=== PATIENT | female | born 1950 | race Caucasian/White ===

== ENCOUNTER 2021-12-08 13:34 | Emergency (ER) | payer MEDICARE, OTHER, SELFPAY ==
--- NOTE | ~2021-12-08 | CT_ITS ---
EXAMINATION: CT brain wo con DATE: 12/08/2021 15:04 INDICATION: head injury TECHNIQUE: Computed tomography (CT) of the head was performed without intravenous contrast. The mA wa s adjusted according to patient size. Iterative reconstruction technique was employed. The dose-lengt h product was 756.67 mGy-cm. COMPARISON: None FINDINGS: No acute intracranial hemorrhage or extra-axial fluid collection. No hydrocephalus, mass, or herniation. No acute ischemic infarct. Unremarkable dural venous sinus attenuation. No acute osseous abnormality. Tiny right maxillary retention cyst/polyp, otherwise the aerated spaces are clear. Atherosclerotic intracranial calcifications. Bilateral lens replacements. IMPRESSION: No acute intracranial process. Reviewed, dictated and finalized at location K.
--- NOTE | ~2021-12-08 | CT_ITS ---
EXAMINATION: CT lumbar spine wo con DATE: 12/08/2021 15:05 INDICATION: Low back pain. TECHNIQUE: Computed tomography (CT) of the lumbar spine was performed without intravenous contrast. A utomated exposure control and iterative reconstruction technique were employed. The dose-length produ ct was 1156.51 mGy-cm. COMPARISON: None FINDINGS: There is 22 degrees levoscoliosis of lumbar spine. There is 3 mm retrolisthesis of L1 on L2 . There is mild chronic anterior wedging of T12 vertebral body. There is severely decreased disc heig ht at L1-L2 and mildly decreased disc height from L2-L3 through L4-L5. The following disc levels are specifically discussed: L1-L2: The disc does not extend beyond the endplate margin. There is severe right and mild left facet joint osteoarthritis. There is moderate right and mild left neural foraminal stenosis. There is mild central canal stenosis. L2-L3: The disc is bulging. There is severe bilateral facet joint osteoarthritis. There is mild bilat eral neural foraminal stenosis. There is mild central canal stenosis. L3-L4: The disc is bulging. There is severe bilateral facet joint osteoarthritis. There is mild bilat eral neural foraminal stenosis. There is mild central canal stenosis. L4-L5: The disc is bulging. There is severe bilateral facet joint osteoarthritis. There is mild right and moderate left neural foraminal stenosis. There is mild central canal stenosis. L5-S1: The disc does not extend beyond the endplate margin. There is severe bilateral facet joint ost eoarthritis. There is mild bilateral neural foraminal stenosis. There is no central canal stenosis. IMPRESSION: 1. Severe lumbar spondylosis. 2. Lumbar levoscoliosis. Reviewed, dictated and finalized at location B.
--- NOTE | ~2021-12-08 | CT_ITS ---
EXAMINATION: CT cervical spine wo con DATE: 12/08/2021 15:05 INDICATION: trauma TECHNIQUE: Computed tomography (CT) of the cervical spine was performed without intravenous contrast. Automated exposure control and iterative reconstruction technique were employed. The dose-length pro duct was 587.01 mGy-cm. COMPARISON: None FINDINGS: Counting reference: Craniocervical junction. There are seven cervical type vertebral bodies. Anatomic Variants: None. Vertebral Body Alignment: Intact. Craniocervical junction: Mild degenerative change. Alignment intact. Osseous structures/fracture: No evidence of a lytic or blastic process in the visualized spine. N o evidence of acute fracture. Cervical soft tissues: The paraspinal soft tissues planes are maintained. 14 mm left upper lobe pu lmonary nodule with spiculated margins. 7 mm left lower lobe nodule, with irregular/spiculated margin s and possible subsolid component. Degenerative changes: Degenerative changes, without severe neural foraminal or central canal narrowin g. Uncomplicated appearing C6-C7 ACDF. IMPRESSION: No acute fracture or traumatic malalignment in the cervical spine. Pulmonary nodules- recommend nonem ergent but timely CT of the chest for complete characterization and guidance of further management. Reviewed, dictated and finalized at location K. IMPRESSION: No acute fracture or traumatic malalignment in the cervical spine. Pulmonary no dules- recommend nonemergent but timely CT of the chest for complete characteri zation and guidance of further management.
[2021-12-08 13:59] VITALS: BP 122/65; PULSE 60; RESP 16; TEMP 35.8; O2SAT 100
[2021-12-08 14:09] LABS: Glucose Point of Care 98 mg/dl (65-105)
--- NOTE | 2021-12-08 14:28 | ED.GENADULT ---
HPI - General Adult General Chief complaint: Recheck/Abnormal Lab/Rx Stated complaint: low blood sugar Time Seen by Provider: 12/08/21 14:04 Source: patient, family and RN notes reviewed Mode of arrival: EMS Limitations: no limitations History of Present Illness HPI narrative: 71-year-old female presented to the emergency department by ambulance after having an episode of hypoglycemia and unresponsiveness. Patient had a fall in her bathroom, EMS arrived on the scene they found that her blood sugar was approximately 10. Patient was treated with IV glucose and patient's mentation and blood sugar did improve. Upon arrival to the emergency department patient was alert oriented and back at her baseline. Patient has been struggling with lower back pain and has had decreased appetite. Patient is also been taking narcotic pain medications which further causes nausea and decreased appetite. Patient states that she has been cutting back on her insulin but that she did not have very much to eat and did still take insulin. Patient had a fall in her bathroom and patient is unsure if she struck her head. Patient is reporting lower back pain which she states is typical of her chronic lower back pain. Patient does report a history of chronic kidney disease, leukocytosis, chronic back pain Related Data Home Medications Medication Instructions Recorded Confirmed allopurinol 100 mg PO DAILY 12/08/21 baclofen 10 mg PO TID 12/08/21 calcitriol 0.25 mcg PO DAILY 12/08/21 ergocalciferol (vitamin D2) 50,000 WEEKLY 12/08/21 [Vitamin D2] fluoxetine 40 mg PO DAILY 12/08/21 hydrochlorothiazide 25 mg PO DAILY 12/08/21 lisinopril 20 mg PO BID 12/08/21 metoprolol succinate 100 mg PO DAILY 12/08/21 omeprazole 40 mg PO DAILY 12/08/21 simvastatin 40 mg PO DAILY 12/08/21 terbinafine HCl [Lamisil] 250 mg PO DAILY 12/08/21 Allergies Allergy/AdvReac Type Severity Reaction Status Date / Time No Known Allergies Allergy Verified 12/08/21 14:04 Review of Systems Review of Systems: CONSTITUTIONAL: Patient reports he does feel tired but this improved while she was in the ED EYES: Denies visual changes, redness, or discharge. ENT: Denies rhinorrhea, congestion, sore throat, or otalgia. CARDIOVASCULAR: Denies chest pain, palpitations, or edema. RESPIRATORY: Denies cough or dyspnea. GASTROINTESTINAL: Denies abdominal pain, nausea, vomiting, or diarrhea. GENITOURINARY: Denies any urinary complaints SKIN: Denies rash or itching. MUSCULOSKELETAL: See HPI NEUROLOGIC: Denies headache, numbness, or weakness. PSYCHIATRIC: Denies anxiety or depression. All systems reviewed & are unremarkable except as noted in HPI and below Exam Narrative: APPEARANCE: Well appearing, no pain, no distress, well-nourished. HEAD: normocephalic, atraumatic. EYES: PERRLA/EOMI, conjunctivae clear. NOSE: Normal no drainage THROAT: Pharynx clear, no exudate. NECK: Patient did arrive in c-collar. Patient did have lower C-spine tenderness to palpation. C-spine precautions were maintained. RESPIRATORY: Airway patent, respirations nonlabored. Clear to auscultation bilaterally, no rales, rhonchi, wheezing. CARDIOVASCULAR: Regular rate and rhythm without murmurs rubs or gallops. ABDOMINAL: Soft, nontender, nondistended, normal bowel sounds MUSCULOSKELETAL: Moves all extremities. Lumbar tenderness to palpation. NEURO: Alert. Cranial nerves II through XII intact. Good gait. Good coordination SKIN: Warm, dry. Normal Color Course Course Emergency Course: Patient had negative imaging of head neck and lumbar spine. Patient continues to deny any new pain from the fall. Patient's blood sugars did remain stable and patient was tolerating p.o. Patient was hyponatremic but denied any symptomatic complaint. Patient states that her only complaint is that of her chronic lower back pain. Patient did have a leukocytosis. Patient states that she has had elevated white blood cell counts. Have been foll
[2021-12-08 14:33] LABS: Basophils Absolute Auto 0.1 K/mm3 (0.0-0.1); Basophils Percent Auto 0.5 % (0.2-1.2); Eosinophils Absolute Auto 0.1 K/mm3 (0-0.3); Eosinophils Percent Auto 0.4 % (0-4.4); Hematocrit 38.3 % (37.0-47.0); Immature Granulocyte Percent A 0.8 % (0-0.5); Lymphocytes Absolute Auto 0.87 K/mm3 (0.9-3.2); Lymphocytes Percent Auto 3.5 % (18.3-44.2); Mean Corpuscular HGB Conc 31.3 g/dl (32-36); Mean Corpuscular Volume 82.9 fl (80-100); Monocytes Absolute Auto 1.2 K/mm3 (0.1-0.6); Monocytes Percent Auto 4.9 % (2.6-8.5); Neutrophils Absolute Auto 22.3 K/mm3 (1.3-6.7); Neutrophils Percent Auto 89.9 % (45.5-73.1); Platelet Count Result 390 k/mm3 (150-375); Red Blood Count 4.62 M/mm3 (4.2-5.4); Red Cell Distribution Width 14.8 % (11.5-14.5); White Blood Count 24.8 K/mm3 (4.5-10.0)
[2021-12-08 14:43] LABS: Lactic Acid Reflex 1.3 mmol/L (0.7-2.0)
[2021-12-08 14:46] LABS: Alanine Aminotransferase 20 U/L (4-35); Albumin Level 3.9 g/dL (3.5-5.1); Alkaline Phosphatase 125 U/L (38-126); Anion Gap 6 mmol/L (8-16); Aspartate Amino Transferase 27 U/L (14-36); Bilirubin,Total 0.5 mg/dL (0.2-1.3); Blood Urea Nitrogen 20 mg/dL (7-17); Calcium 9.1 mg/dL (8.4-10.2); Carbon Dioxide 29 mmol/L (22-30); Chloride 91 mmol/L (98-107); Estimated CRCL calculation 49 ml/min; Estimated Glomerular Filt Rate 49; Glucose 57 mg/dL (65-110); Potassium 3.8 mmol/L (3.4-5.0); Sodium 126 mmol/L (137-145)
--- NOTE | 2021-12-08 15:04 | PC.NURSE ---
Pt states she uses Levimir pen and Humalog insulin but it unaware of doses.
[2021-12-08 15:18] LABS: Glucose Point of Care 71 mg/dl (65-105)
[2021-12-08] MEDS: HYDROcodone/acetaminophen (*CRX) 5-325 MG TABLET 1 TAB PO (15:53)
[2021-12-08] MEDS: CYCLOBENZAPRINE HCL 10 MG TABLET PO (15:53)
[2021-12-08 17:04] LABS: Appearance Urine Clear (Clear); Bilirubin Urine 1+ (Negative); Blood Urine 2+ (Negative); Color Urine Yellow (Yellow); Glucose Urine UA Negative (Negative); Ketones Urine Negative (Negative); Leukocyte Esterase Ur 1+ LEU/UL (Negative); Nitrate Urine Negative (Negative); Protein Urine Trace mg/dL (Negative); Specific Grav Ur 1.015 (1.001-1.035); pH Urine 6.5 (5.0-9.0)
[2021-12-08 17:26] LABS: Bacteria Urine Trace /hpf; Mucus Urine Rare /lpf; Squamous Epithelial Cell Urine Many /hpf (Few)
[2021-12-08 17:43] LABS: Glucose Point of Care 168 mg/dl (65-105)
[2021-12-08 17:47] LABS: Add Urine Microscopic? YES
== END 2021-12-08 17:55 | disposition home or self-care (01) ==
PROVIDERS: Emergency Provider Emergency Medicine; PCP Internal Medicine
DX: E11.649 Type 2 diabetes mellitus with hypoglycemia without coma (principal); E87.1 Hypo-osmolality and hyponatremia; D72.829 Elevated white blood cell count, unspecified; E11.22 Type 2 diabetes mellitus with diabetic chronic kidney disease; N18.9 Chronic kidney disease, unspecified; G89.29 Other chronic pain; M54.50 Low back pain, unspecified; R82.90 Unspecified abnormal findings in urine; Z79.4 Long term (current) use of insulin; M47.816 Spondylosis without myelopathy or radiculopathy, lumbar region; R91.8 Other nonspecific abnormal finding of lung field
CPT/HCPCS: 36415; 70450; 72125; 72131; 80053; 81001; 82948; 83605; 85025; 87086; 87088; 99284; A9270